=== PATIENT | female | born 1990 | race Hispanic/Latino ===

== ENCOUNTER 2020-03-02 08:46 | Emergency (ER) | payer SELFPAY ==
--- NOTE | 2020-03-02 09:05 | EDPHYS ---
Physician Documentation [facility] Name: Patrica Reina Age: 29 yrs Sex: Female : 1990 Arrival Date: 03/02/2020 Time: 08:48 Bed 5 Private MD: ED Physician Tico Lea HPI: 03/02 09:01 This 29 yrs old Female presents to ER via Ambulatory with complaints of jmm Reaction From Bug Bite. 09:01 The patient's rash thought to be caused by insect bites. Onset: The symptoms/episode jmm began/occurred gradually, 2 week(s) ago. Associated signs and symptoms: Pertinent positives: itching, Pertinent negatives: difficulty breathing, fever, Pain swelling of lips, swelling of throat, swelling of tongue, vomiting, wheezing. The patient has not experienced similar symptoms in the past. 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 - Social history:: Smoking status: Patient denies any tobacco usage or history of. ROS: 09:01 Constitutional: Negative for fever, chills, and weight loss, Cardiovascular: Negative jmm for chest pain, palpitations, and edema, Respiratory: Negative for shortness of breath, cough, wheezing, and pleuritic chest pain. 09:01 Skin: Positive for rash. 09:01 All other systems are negative. Exam: 09:01 Constitutional: This is a well developed, well nourished patient who is awake, alert, jmm and in no acute distress. Head/Face: atraumatic. Eyes: EOMI, no conjunctival erythema appreciated ENT: Moist Mucus Membranes Neck: Trachea midline, Supple Chest/axilla: Normal chest wall appearance and motion. Cardiovascular: Regular rate and rhythm. No edema appreciated Respiratory: Normal respirations, no respiratory distress appreciated Abdomen/GI: Non distended, soft 09:01 Skin: papular rash noted to the arms bilaterally, no indurations, non tender to palpation. 09:01 Neuro: Orientation: is normal, Mentation: is normal, Memory: is normal. 09:01 Psych: Behavior/mood is pleasant, cooperative. Vital Signs: 08:58 BP 117 / 54; Pulse 86; Resp 16; Temp 98.0(TE); Pulse Ox 100% on R/A; Height 5 ft. 2 in. ss (157.48 cm); Pain 0/10; MDM: 09:01 Patient medically screened. [facility] 09:27 Data reviewed: vital signs, nurses notes. Counseling: I had a detailed discussion with sara the patient and/or guardian regarding: the historical points, exam findings, and any diagnostic results supporting the discharge/admit diagnosis, the need for outpatient follow up, to return to the emergency department if symptoms worsen or persist or if there are any questions or concerns that arise at home. ED course: Patient is alert and non toxic in appearance in the ED. Differential dermatitis, insect bite, scabies. Patient advised to follow up with pcp and otherwise given strict return precautions. Patient understood and agrees with the plan of care. . Administered Medications: No medications were administered Disposition: 12:01 Co-signature as Attending Physician, Tico Lea MD I agree with the assessment and kdr plan of care. Disposition: 03/02/20 09:05 Discharged to Home. Impression: Insect bite (nonvenomous), unspecified lower leg, Insect bite (nonvenomous) of unspecified upper arm. - Condition is Stable. - Discharge Instructions: Insect Bite. - Prescriptions for Elimite 5 % Topical Cream - apply 1 application by TOPICAL route one time Wash after 12 hours.; 60 gram. Hydroxyzine HCl 25 mg Oral Tablet - take 1 tablet by ORAL route every 6 hours As needed; 30 tablet. Medrol ([place]) 4 mg Oral Tablets, Dose Pack - take 1 tablet by ORAL route as directed - follow package instructions; 1 packet. - Medication Reconciliation Form, Thank You Letter, Antibiotic Education, Prescription Opioid Use form. - Follow up: Private Physician; When: 2 - 3 days; Reason: Recheck today's complaints, Continuance of care, Re-evaluation by your physician. Signatures: Tico Lea MD MD kdr Mickail, Joel, PA PA jmm Smirch, Shelby, RN RN ss Ameena Asher RN RN tw2 Corrections: (The following items were deleted from the chart) 09:13 09:05 03/02/2020 09:05 Discharged to Home. Impression: Insect bite (nonvenomous), tw2 unspecified lower leg; Insect bite (nonvenomous) of unspecified upper arm. Condition is Stable. Forms are Medication Reconciliation Form, Thank You Letter, Antibiotic Education, Prescription Opioid Use. Follow up: Private Physician; When: 2 - 3 days; Reason: Recheck today's complaints, Continuance of care, Re-evaluation by your physician. sara
--- NOTE | 2020-03-02 09:05 | ER ---
Nurse's Notes [facility] Name: Patrica Reina Age: 29 yrs Sex: Female : 1990 Arrival Date: 03/02/2020 Time: 08:48 Bed 5 Private MD: Diagnosis: Insect bite (nonvenomous), unspecified lower leg;Insect bite (nonvenomous) of unspecified upper arm Presentation: 03/02 08:58 Chief complaint: Patient states: Pt reports itching to back and all extremities x 2 ss weeks. Believes it may be fleas. Coronavirus screen: Client denies travel out of the [place] in the last 14 days. Ebola Screen: Patient denies exposure to infectious person. Patient denies travel to an Ebola-affected area in the 21 days before illness onset. Initial Sepsis Screen: Does the patient meet any 2 criteria? No. Patient's initial sepsis screen is negative. Does the patient have a suspected source of infection? No. Patient's initial sepsis screen is negative. Risk Assessment: Do you want to hurt yourself or someone else? Patient reports no desire to harm self or others. Onset of symptoms was February 17, 2020. 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 - Social history:: Smoking status: Patient denies any tobacco usage or history of. Screenin:00 Abuse screen: Denies threats or abuse. Nutritional screening: No deficits noted. tw2 Tuberculosis screening: No symptoms or risk factors identified. Fall Risk None identified. Assessment: 09:02 General: Appears in no apparent distress. Behavior is calm, cooperative, appropriate tw2 for age. Pain: Denies pain. Neuro: Level of Consciousness is awake, alert, obeys commands, Oriented to person, place, time, situation. Cardiovascular: Patient's skin is warm and dry. Respiratory: Airway is patent Respiratory effort is even, unlabored, Respiratory pattern is regular, symmetrical. GI: No signs and/or symptoms were reported involving the gastrointestinal system. : No signs and/or symptoms were reported regarding the genitourinary system. EENT: No signs and/or symptoms were reported regarding the EENT system. Derm: Rash noted that is small red raised bumps on b/l arms, pt reports them on legs as well, provider at bedside at this time. 09:13 Reassessment: Patient appears in no apparent distress at this time. No changes from tw2 previously documented assessment. Patient and/or family updated on plan of care and expected duration. Pain level reassessed. Patient is alert, oriented x 3, equal unlabored respirations, skin warm/dry/pink. Vital Signs: 08:58 BP 117 / 54; Pulse 86; Resp 16; Temp 98.0(TE); Pulse Ox 100% on R/A; Height 5 ft. 2 in. ss (157.48 cm); Pain 0/10; ED Course: 08:48 Patient arrived in ED. ds1 08:51 Angel Cash PA is PHCP. [facility] 08:51 Tico Lea MD is Attending Physician. [facility] 09:00 Ameena Asher, DON is Primary Nurse. tw2 09:00 Bed in low position. Call light in reach. Pulse ox on. NIBP on. tw2 09:01 Triage completed. ss 09:01 Arm band placed on right wrist. 09:12 No provider procedures requiring assistance completed. Patient did not have IV access tw2 during this emergency room visit. Administered Medications: No medications were administered Outcome: 09:05 Discharge ordered by . [facility] 09:12 Discharged to home ambulatory. tw2 09:12 Condition: stable 09:12 Discharge instructions given to patient, Instructed on discharge instructions, follow up and referral plans. no drinking with medication, no driving heavy equipment, medication usage, Demonstrated understanding of instructions, follow-up care, medications, Prescriptions given X 3. 09:13 Patient left the ED. tw2 Signatures: Angel Cash PA PA jmm Sanford, Demi ds1 Tami Naqvi RN RN Ameena Asher RN RN tw2
[2020-03-06 10:48] VITALS: BP 117/54; TEMP 98; O2SAT 100
== END 2020-03-02 09:13 | disposition home or self-care (01) ==
LOC: ER 08:46
DX: S40.862A Insect bite (nonvenomous) of left upper arm, initial encounter (principal); S40.861A Insect bite (nonvenomous) of right upper arm, initial encounter; S80.862A Insect bite (nonvenomous), left lower leg, initial encounter; S80.861A Insect bite (nonvenomous), right lower leg, initial encounter
CPT/HCPCS: 99283

== ENCOUNTER 2022-03-13 23:24 | Emergency (ER) | payer SELFPAY ==
--- NOTE | 2022-03-14 00:20 | EDPHYS ---
Physician Documentation [facility] Name: Patrica Reina Age: 31 yrs Sex: Female : 1990 Arrival Date: 03/13/2022 Time: 23:27 Bed Waiting Private MD: ED Physician Alex Triplett HPI: 03/13 23:53 This 31 yrs old Female presents to ER via Ambulatory with complaints of Runny kb Nose. 23:53 The patient or guardian reports flu symptoms, low-grade fever. Onset: The kb symptoms/episode began/occurred last week. Severity of symptoms: At their worst the symptoms were mild, in the emergency department the symptoms are unchanged. Modifying factors: The symptoms are alleviated by nothing, the symptoms are aggravated by nothing. Associated signs and symptoms: Pertinent positives: fever, rhinorrhea, Pertinent negatives: chest pain, diarrhea, ear ache, nausea, sore throat, vomiting. The patient has not experienced similar symptoms in the past. The patient has not recently seen a physician. Pt reports fever on Thursday, an intermittent headache and today has had runny nose, congestion and sneezing. Also reports sore on upper lip that someone told her was herpes so she was worried. . 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 - Social history:: Smoking status: Patient denies any tobacco usage or history of. Patient uses alcohol, but reports only rare drinking. ROS: 23:52 Cardiovascular: Negative for chest pain, palpitations, and edema. kb 23:52 Constitutional: Positive for fever, Negative for body aches, chills, fatigue, malaise, poor PO intake, weight loss. 23:52 ENT: Positive for rhinorrhea, sinus congestion. 23:52 Skin: Positive for sore on upper lip. 23:52 All other systems are negative. Exam: 23:52 Constitutional: This is a well developed, well nourished patient who is awake, alert, kb and in no acute distress. Head/Face: Normocephalic, atraumatic. ENT: Moist Mucous membranes Cardiovascular: Regular rate and rhythm with a normal S1 and S2. No gallops, murmurs, or rubs. No pulse deficits. Respiratory: Respirations even and unlabored. No increased work of breathing. Talking in full sentences Abdomen/GI: Soft, non-tender. No distention MS/ Extremity: Pulses equal, no cyanosis. Neurovascular intact. Full, normal range of motion. Neuro: Awake and alert, GCS 15, oriented to person, place, time, and situation. Moves all extremities. Normal gait. Psych: Awake, alert, with orientation to person, place and time. Behavior, mood, and affect are within normal limits. 23:52 Skin: rash can be described as vesicular, on the upper lip. Vital Signs: 23:40 BP 140 / 86; Pulse 97; Resp 18; Temp 98.4(O); Pulse Ox 100% on R/A; Weight 69.13 kg; bb Height 5 ft. 1 in. (154.94 cm); Pain 3/10; 23:40 Body Mass Index 28.80 (69.13 kg, 154.94 cm) bb MDM: 23:40 Patient medically screened. kb 23:51 Data reviewed: vital signs, nurses notes. Data interpreted: Pulse oximetry: on room air kb is 100 %. Interpretation: normal. 03/14 00:18 Counseling: I had a detailed discussion with the patient and/or guardian regarding: the kb historical points, exam findings, and any diagnostic results supporting the discharge/admit diagnosis, lab results, the need for outpatient follow up, a family practitioner, to return to the emergency department if symptoms worsen or persist or if there are any questions or concerns that arise at home. 03/13 23:35 Order name: Flu; Complete Time: 00:09 bb 03/13 23:35 Order name: COVID-19 SARS RT PCR (Document "Date of Onset" if Symptomatic); Complete bb Time: 00:18 Administered Medications: No medications were administered Disposition: 00:52 Co-signature as Attending Physician, Alex Triplett MD. rn Disposition Summary: 03/14/22 00:19 Discharge Ordered Location: Home kb Condition: Stable kb Diagnosis - Acute upper respiratory infection, unspecified kb - Herpesviral infection, unspecified kb Followup: kb - With: Emergency Department - When: As needed - Reason: Worsening of condition Followup: kb - With: Private Physician - When: 2 - 3 days - Reason: Recheck today's complaints, Continuance of care, Re-evaluation by your physician Discharge Instructions: - Discharge Summary Sheet kb - Upper Respiratory Infection, Adult, [id number] kb - Viral Respiratory Infection, [id number] kb - Cold Sore, [id number] kb Forms: - Medication Reconciliation Form kb - Thank You Letter kb - Antibiotic Education kb - Prescription Opioid Use kb Signatures: Dispatcher [employer] EDMS Charlee Zhang, ZANDRA-C ZANDRA-Alee Burgess, RN RN bb Alex Triplett MD MD rn
--- NOTE | 2022-03-14 00:20 | ER ---
Nurse's Notes [facility] Name: Patrica Reina Age: 31 yrs Sex: Female : 1990 Arrival Date: 03/13/2022 Time: 23:27 Bed Waiting Private MD: Diagnosis: Acute upper respiratory infection, unspecified;Herpesviral infection, unspecified Presentation: 03/13 23:40 Chief complaint: Patient states: blister on upper lip since Thursday, had fever, h/a, and bb congestion since Thursday. Coronavirus screen: Vaccine status: Patient reports being unvaccinated. Ebola Screen: No symptoms or risks identified at this time. Initial Sepsis Screen: Does the patient meet any 2 criteria? No. Patient's initial sepsis screen is negative. Does the patient have a suspected source of infection? No. Patient's initial sepsis screen is negative. Risk Assessment: Do you want to hurt yourself or someone else? Patient reports no desire to harm self or others. Onset of symptoms was March 09, 2022. 23:40 Method Of Arrival: Ambulatory bb 23:40 Acuity: JULIET 4 bb Triage Assessment: 23:46 General: Appears in no apparent distress. comfortable, Behavior is calm, cooperative, bb appropriate for age. Pain: Complains of pain in upper juliocesar border Pain does not radiate. Pain currently is 3 out of 10 on a pain scale. Neuro: Level of Consciousness is awake, alert, obeys commands, Oriented to person, place, time, situation. Cardiovascular: Capillary refill < 3 seconds Patient's skin is warm and dry. Respiratory: Airway is patent Respiratory effort is even, unlabored. GI: No signs and/or symptoms were reported involving the gastrointestinal system. : No signs and/or symptoms were reported regarding the genitourinary system. Derm:. Derm: No signs and/or symptoms reported regarding the dermatologic system. Musculoskeletal: No signs and/or symptoms reported regarding the musculoskeletal system. 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 - Social history:: Smoking status: Patient denies any tobacco usage or history of. Patient uses alcohol, but reports only rare drinking. Screenin/09 00:38 Abuse screen: Denies threats or abuse. Denies injuries from another. Nutritional as6 screening: No deficits noted. Tuberculosis screening: No symptoms or risk factors identified. Fall Risk None identified. Assessment: 03/13 23:51 Reassessment: No changes from previously documented assessment. See triage assessment. bb Vital Signs: 23:40 BP 140 / 86; Pulse 97; Resp 18; Temp 98.4(O); Pulse Ox 100% on R/A; Weight 69.13 kg; bb Height 5 ft. 1 in. (154.94 cm); Pain 3/10; 23:40 Body Mass Index 28.80 (69.13 kg, 154.94 cm) bb ED Course: 23:27 Patient arrived in ED. bp1 23:30 Charlee [facility]-C [facility]. kb 23:30 Alex Triplett MD is Attending Physician. kb 23:46 Triage completed. bb 23:46 Arm band placed on right wrist. bb 03/14 00:38 Patient has correct armband on for positive identification. as6 00:38 No provider procedures requiring assistance completed. Patient did not have IV access as6 during this emergency room visit. Administered Medications: No medications were administered Medication: 00:38 VIS not applicable for this client. as6 Outcome: 00:19 Discharge ordered by . kb 00:38 Discharged to home ambulatory. as6 00:38 Condition: stable 00:38 Discharge instructions given to patient, Instructed on discharge instructions, follow up and referral plans. Demonstrated understanding of instructions, follow-up care. 00:38 Patient left the ED. as6 Signatures: Charlee Zhang FNP-C FNP-Ckb Ballard, Brenda, RN RN bb Crista Kay Ashby, RN RN as6
[2022-03-14 03:36] VITALS: BP 140/86; TEMP 98.4; O2SAT 100
== END 2022-03-14 00:38 | disposition home or self-care (01) ==
LOC: ER 23:24
DX: J06.9 Acute upper respiratory infection, unspecified (principal); B00.9 Herpesviral infection, unspecified; I10 Essential (primary) hypertension; Z20.822 Contact with and (suspected) exposure to COVID-19
CPT/HCPCS: 87804; 99281; U0003

== ENCOUNTER 2023-12-15 06:22 | Emergency (ER) | payer SELFPAY ==
--- NOTE | 2023-12-15 06:48 | EDPHYS ---
Physician Documentation [facility] Name: Patrica Reina Age: 33 yrs Sex: Female : 1990 Arrival Date: 12/15/2023 Time: 06:22 Bed 6 Private MD: ED Physician Mark Pizano HPI: 12/14 06:34 This 33 yrs old Female presents to ER via Unassigned with complaints of sp4 Foreign body In Vagina. 23:37 33-year-old female presents with complaint of retained tampon in vaginal canal for sp4 estimated 2 months. 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 Historical: - Allergies: 06:38 No Known Allergies; lg3 - Home Meds: 06:38 None [Active]; lg3 - PMHx: 06:38 Hypertension; lg3 - PSHx: 06:38 section; lg3 - Immunization history:: Adult Immunizations up to date. - Infectious Disease History:: Denies. - Social history:: Smoking status: Patient denies any tobacco usage or history of. Patient uses alcohol, occasionally. - Family history:: not pertinent. ROS: 23:37 Positive for Vaginal discharge, sensation of foreign body , Negative for urinary sp4 symptoms, 23:37 Constitutional: Negative for fever, chills, and weight loss, 23:37 All other systems are negative, Exam: 23:37 Constitutional: This is a well developed, well nourished patient who is awake, alert, sp4 and in no acute distress. Head/Face: Normocephalic, atraumatic. Eyes: Pupils equal round and reactive to light, extra-ocular motions intact. Lids and lashes normal. Conjunctiva and sclera are not injected. Cornea within normal limits. Periorbital areas with no swelling, redness, or edema. ENT: Nares patent. No nasal discharge, no septal abnormalities noted. Tympanic membranes are normal and external auditory canals are clear. Oropharynx with no redness, swelling, or masses, exudates, or evidence of obstruction, uvula midline. Mucous membranes moist. Neck: Trachea midline, no thyromegaly or masses palpated, and no cervical lymphadenopathy. Supple, full range of motion without nuchal rigidity, or vertebral point tenderness. Chest/axilla: Normal chest wall appearance and motion. Nontender with no deformity. No lesions are appreciated. Cardiovascular: Regular rate and rhythm with a normal S1 and S2. No gallops, murmurs, or rubs. Normal PMI, no JVD. No pulse deficits. Respiratory: Lungs have equal breath sounds bilaterally, clear to auscultation and percussion. No rales, rhonchi or wheezes noted. No increased work of breathing, no retractions or nasal flaring. Abdomen/GI: Soft, with normal bowel sounds. No distension or tympany. No guarding or rebound. No evidence of tenderness throughout. Back: No spinal tenderness. No costovertebral tenderness. Pelvic Exam: Normal external genitalia. Speculum exam with closed cervical os, no discharge or bleeding noted. Normal speculum exam, normal-appearing cervix, no vaginal discharge, no signs of retained foreign body such as tampon or any other foreign body. Overall normal vaginal exam with female health advocate. Skin: Warm, dry with normal turgor. Normal color with no rashes, no lesions, and no evidence of cellulitis. MS/ Extremity: Pulses equal, no cyanosis. Neurovascular intact. Full, normal range of motion. Neuro: Awake and alert, GCS 15, oriented to person, place, time, and situation. Cranial nerves II-XII grossly intact. Motor strength 5/5 in all extremities. Sensory grossly intact. Psych: Awake, alert, with orientation to person, place and time. Behavior, mood, and affect are within normal limits Vital Signs: 06:36 BP 138 / 82; Pulse 91; Resp 17 S; Temp 97.4(TE); Pulse Ox 100% on R/A; Weight 64.86 kg lg3 (R); Height 5 ft. 2 in. (R); Pain 3/10; 06:36 Body Mass Index 26.15 (64.86 kg, 157.48 cm) lg3 06:36 Pain Scale: Adult lg3 Hume Coma Score: 23:37 Eye Response: spontaneous(4). Motor Response: obeys commands(6). Verbal Response: sp4 oriented(5). Total: 15. MDM: 06:34 Patient medically screened. sp4 23:37 Differential diagnosis: urinary tract infection, vaginosis, Retained foreign body sp4 vaginal. Data reviewed: vital signs, nurses notes. ED course: Exam is normal today, no signs of retained foreign body. Patient stable for discharge home . 12/14 06:34 Order name: Pelvic Exam Setup; Complete Time: 06:42 sp4 Administered Medications: No medications were administered Disposition Summary: 12/15/23 06:47 Discharge Ordered Notes: Location: Home sp4 Problem: new sp4 Symptoms: have improved sp4 Condition: Stable sp4 Diagnosis - vaginal discomfort sp4 - Sensation of foreign body sp4 Followup: sp4 - With: Evy Lal MD - When: 7 - 10 days - Reason: Recheck today's complaints Discharge Instructions: - Discharge Summary Sheet sp4 - Medical Screening Exam sp4 Forms: - Patient Portal Instructions sp4 Signatures: Haydee Deleon RN RN lg3 Mark Pizano MD MD sp4
--- NOTE | 2023-12-15 06:48 | ER ---
Nurse's Notes [facility] Name: Patrica Reina Age: 33 yrs Sex: Female : 1990 Arrival Date: 12/15/2023 Time: 06:22 Bed 6 Private MD: Diagnosis: vaginal discomfort ;Sensation of foreign body Presentation: 12/14 06:36 Chief complaint: Patient states: possible tampon X2-3 months. Coronavirus screen: lg3 Client denies travel out of the [place] in the last 14 days. At this time, the client does not indicate any symptoms associated with coronavirus-19. Ebola Screen: No symptoms or risks identified at this time. Initial Sepsis Screen: Does the patient meet any 2 criteria? No. Patient's initial sepsis screen is negative. Does the patient have a suspected source of infection? No. Patient's initial sepsis screen is negative. Risk Assessment: Do you want to hurt yourself or someone else? Patient reports no desire to harm self or others. Onset of symptoms is unknown. 06:36 Method Of Arrival: Ambulatory lg3 06:36 Acuity: JULIET 4 lg3 Triage Assessment: 06:38 General: Appears in no apparent distress. comfortable, Behavior is calm, cooperative. lg3 Pain: Complains of pain in pelvis Pain does not radiate. Pain currently is 3 out of 10 on a pain scale. Quality of pain is described as pressure. EENT: No deficits noted. No signs and/or symptoms were reported regarding the EENT system. Neuro: No deficits noted. Jiang Agitation-Sedation Scale (RASS): 0 - Alert and Calm Level of Consciousness is awake, alert, obeys commands, Oriented to person, place, time, situation. Cardiovascular: No deficits noted. Denies chest pain, shortness of breath, Capillary refill < 3 seconds Clubbing of nail beds is absent JVD is absent Patient's skin is warm and dry. Respiratory: No deficits noted. Airway is patent Respiratory effort is even, unlabored, Respiratory pattern is regular, symmetrical. GI: Abdomen is round non-distended. : No signs and/or symptoms were reported regarding the genitourinary system. Denies burning with urination, inability to void. Derm: No deficits noted. No signs and/or symptoms reported regarding the dermatologic system. Skin is intact, is healthy with good turgor, Skin is dry, Skin is normal, Skin temperature is warm. Musculoskeletal: No deficits noted. No signs and/or symptoms reported regarding the musculoskeletal system. Circulation, motion, and sensation intact. Range of motion: intact in all extremities. Historical: - Allergies: 06:38 No Known Allergies; lg3 - Home Meds: 06:38 None [Active]; lg3 - PMHx: 06:38 Hypertension; lg3 - PSHx: 06:38 section; lg3 - Immunization history:: Adult Immunizations up to date. - Infectious Disease History:: Denies. - Social history:: Smoking status: Patient denies any tobacco usage or history of. Patient uses alcohol, occasionally. - Family history:: not pertinent. Screenin:40 [facility] ED Fall Risk Assessment (Adult) History of falling in the last 3 months, lg3 including since admission No falls in past 3 months (0 pts) Confusion or Disorientation No (0 pts) Intoxicated or Sedated No (0 pts) Impaired Gait No (0 pts) Mobility Assist Device Used No (0 pt) Altered Elimination No (0 pt) Score/Fall Risk Level 0 - 2 = Low Risk Oriented to surroundings, Maintained a safe environment, Educated pt \T\ family on fall prevention, incl call for assistance when getting out of bed, Assessed \T\ reinforced patient's understanding of fall precautions. Abuse screen: Denies threats or abuse. Denies injuries from another. Nutritional screening: No deficits noted. Tuberculosis screening: No symptoms or risk factors identified. Assessment: 06:40 General: see triage assessment. lg3 Vital Signs: 06:36 BP 138 / 82; Pulse 91; Resp 17 S; Temp 97.4(TE); Pulse Ox 100% on R/A; Weight 64.86 kg lg3 (R); Height 5 ft. 2 in. (R); Pain 3/10; 06:36 Body Mass Index 26.15 (64.86 kg, 157.48 cm) lg3 06:36 Pain Scale: Adult lg3 Alana Coma Score: 23:37 Eye Response: spontaneous(4). Motor Response: obeys commands(6). Verbal Response: sp4 oriented(5). Total: 15. ED Course: 06:30 Patient arrived in ED. [id number] 06:34 Mark Pizano MD is Attending Physician. sp4 06:38 Triage completed. lg3 06:38 Arm band placed on right wrist. lg3 06:40 Patient has correct armband on for positive identification. Placed in gown. Bed in low lg3 position. Call light in reach. Client placed on continuous cardiac and pulse oximetry monitoring. NIBP monitoring applied. Door closed. Noise minimized. Warm blanket given. Pillow given. 06:45 Haydee Deleon, RN is Primary Nurse. lg3 06:45 Assist provider with pelvic exam: Set up pelvic tray. Performed by Mark Pizano MD lg3 Patient tolerated well. 06:46 Evy Lal MD is Referral Physician. sp4 06:52 Provided Education on: pelvic rest times 7 days. vc1 06:52 Patient did not have IV access during this emergency room visit. vc1 Administered Medications: No medications were administered Medication: 06:52 VIS not applicable for this client. vc1 Outcome: 06:47 Discharge ordered by MD. sp4 06:51 Discharged to home ambulatory, vc1 06:51 Condition: good 06:51 Discharge instructions given to patient, Instructed on discharge instructions, follow up and referral plans. Demonstrated understanding of instructions, follow-up care, 06:52 Patient left the ED. vc1 Signatures: Haydee Deleon, DON RN lg3 Raquel [email or web address] Camila Ramachandran RN RN vc1 Mark Pizano MD MD sp4
[2023-12-15 07:02] VITALS: BP 138/82; TEMP 97.4; O2SAT 100
== END 2023-12-15 06:52 | disposition home or self-care (01) ==
LOC: ER 06:22
DX: R10.2 Pelvic and perineal pain (principal); R09.A9 Foreign body sensation, other site
CPT/HCPCS: 99283